=== PATIENT | female | born 1990 | race Caucasian/White ===

== ENCOUNTER 2017-12-25 10:25 | Emergency (ER) | payer BC ==
[~2017-12-25] VITALS: Ht 160 cm; Wt 63.6 kg
[~2017-12-25 10:25] MED LIST: ALLEGRA 180MG180 MG PO; ALLEGRA30 MG PO; BCP TD; CELEXA 20MG20 MG/TAB PO; CETIRIZINE; CYMBALTA 60MG60 MG PO; ELAVIL50 MG PO; FIORICET 325 MG1 TA1 PO; FLEXERIL 1010 MG/TAB PO; FLONASE0.05 MG/AC NS; IMATREX IM; MACROBID100 MG PO; NO HOME MEDICATIONS; PRENATAL VITAMI1 TA5 PO; RELPAX 40MG TAB40 MG PO; SEPTRA DS 8001 TAB PO; TOPAMAX 25MG25 M1 PO; TOPAMAX50 MG PO; ZOFRAN 4MG T4 MG/TAB PO; ZOFRAN ODT4 MG PO; ZOMIG2.5 MG PO
[2017-12-25 10:32] VITALS: TEMP 97.7
[2017-12-25] MEDS ORDERED: PRILOSEC 20MG20 MG PO (10:36)
[2017-12-25 11:31] LABS: BASO % 0.2 % (0.0-2.0); EOS % 0.6 % (0-4.0); GRAN # 3.4 (1.4-6.5); GRAN % 69.9 % (42.2-75.2); HEMATOCRIT 39.4 % (37.0-47.0); HEMOGLOBIN 13.3 g/dl (12.5-16.0); MEAN CELL VOLUME 86 fl (80.0-100.0); MEAN CORPUSCULAR HEMOGLOBIN 29 pg (27.0-31.0); MEAN CORPUSCULAR HGB CONC 34 g/dl (33.0-37.0); MEAN PLATELET VOLUME 9.5 fl (7.4-10.4); MONO # 0.4 (0.1-0.6); MONO % 8.1 % (1.7-9.3); PLATELET COUNT 227 K/mm3 (130-400); RED BLOOD COUNT 4.59 M/mm3 (4.10-5.30); REDCELL DISTRIBUTION WIDTH-CV 12.9 % (11.5-14.5)
[2017-12-25 12:05] LABS: ALBUMIN 4.3 gm/dL (3.5-5.0); BILIRUBIN,TOTAL 0.7 mg/dL (0.0-1.0); CALCIUM 9.5 mg/dL (8.4-10.2); CREATININE, serum 0.72 mg/dL (0.52-1.25); POTASSIUM 3.7 mmol/L (3.4-5.0); TOTAL PROTEIN 7.5 gm/dL (6.4-8.2)
[2017-12-25] MEDS ORDERED: ZOFRAN ODT4 MG PO (12:42)
[2017-12-25 12:55] VITALS: BP 107/62; PULSE 74
== END 2017-12-25 12:56 | disposition home or self-care (01) ==
LOC: COL.ER 10:25
PROVIDERS: Physician Assistant
DX: E86.9 Volume depletion, unspecified (principal); J06.9 Acute upper respiratory infection, unspecified; R11.2 Nausea with vomiting, unspecified; R19.7 Diarrhea, unspecified; K21.9 Gastro-esophageal reflux disease without esophagitis; Z98.890 Other specified postprocedural states
CPT/HCPCS: J2405; J7030

== ENCOUNTER 2018-02-22 15:25 | Outpatient (CLI) | payer BC ==
[~2018-02-22] VITALS: Ht 160 cm; Wt 63.6 kg
[~2018-02-22 15:25] MED LIST changes: +PRILOSEC 20MG20 MG PO
[2018-02-22] MEDS ORDERED: DEXILANT30 MG PO (16:15)
[2018-02-22 16:17] VITALS: BP 114/70; PULSE 81; TEMP 97.6
[2018-02-22] MEDS ORDERED: IMITREX100 MG PO (16:24)
[2018-02-22 16:58] LABS: HEMOGLOBIN 12.7 g/dl (12.5-16.0); MEAN CELL VOLUME 85 fl (80.0-100.0); MEAN CORPUSCULAR HEMOGLOBIN 29 pg (27.0-31.0); MEAN CORPUSCULAR HGB CONC 34 g/dl (33.0-37.0); MEAN PLATELET VOLUME 10.4 fl (7.4-10.4); PLATELET COUNT 109 K/mm3 (130-400); RED BLOOD COUNT 4.34 M/mm3 (4.10-5.30); REDCELL DISTRIBUTION WIDTH-CV 12.7 % (11.5-14.5)
== END 2018-02-22 17:31 | disposition home or self-care (01) ==
LOC: EUO 15:25
PROVIDERS: Family Medicine
DX: D69.6 Thrombocytopenia, unspecified (principal); R11.2 Nausea with vomiting, unspecified
CPT/HCPCS: J2405; J7030

== ENCOUNTER 2018-02-23 17:37 | Inpatient (IN) | payer BC ==
[~2018-02-23] VITALS: Ht 160 cm; Wt 64.7 kg
[2018-02-23 18:09] VITALS: BP 116/56; PULSE 81; TEMP 99.3
[2018-02-23 19:00] LABS: BASO % 0.3 % (0.0-2.0); EOS # 0.1 (0.0-0.7); EOS % 1.6 % (0-4.0); GRAN # 4.2 (1.4-6.5); GRAN % 66.4 % (42.2-75.2); HEMATOCRIT 39.9 % (37.0-47.0); HEMOGLOBIN 13.5 g/dl (12.5-16.0); LYMPH # 1.3 (1.2-3.4); LYMPH % 21.3 % (20.0-51.0); MEAN CELL VOLUME 86 fl (80.0-100.0); MEAN CORPUSCULAR HEMOGLOBIN 29 pg (27.0-31.0); MEAN CORPUSCULAR HGB CONC 34 g/dl (33.0-37.0); MEAN PLATELET VOLUME 10.1 fl (7.4-10.4); MONO # 0.6 (0.1-0.6); MONO % 10.2 % (1.7-9.3); PLATELET COUNT 76 K/mm3 (130-400); RED BLOOD COUNT 4.65 M/mm3 (4.10-5.30); REDCELL DISTRIBUTION WIDTH-CV 12.7 % (11.5-14.5)
[2018-02-23 19:23] LABS: CALCIUM 9.3 mg/dL (8.4-10.2); CREATININE, serum 0.71 mg/dL (0.52-1.25); MAGNESIUM 1.7 mg/dL (1.6-2.3); PHOSPHOROUS 3.5 mg/dL (2.5-4.5); POTASSIUM 3.9 mmol/L (3.4-5.0)
[2018-02-23 19:24] VITALS: BP 119/80; PULSE 90; TEMP 98.4
[2018-02-23 19:37] LABS: INR 1.2 (0.8-3.0); PROTHROMBIN TIME 13.9 SECONDS (9.7-12.8)
[2018-02-23 19:40] LABS: PARTIAL THROMBOPLASTIN TIME 29.9 SECONDS (26.0-37.0)
[2018-02-23 19:52] LABS: ALBUMIN 4.2 gm/dL (3.5-5.0); TOTAL PROTEIN 7.8 gm/dL (6.4-8.2)
[2018-02-23 20:06] LABS: BILIRUBIN UNCONJUGATED 0.2 mg/dL (0.0-1.1); BILIRUBIN,DIRECT 0.3 mg/dL (0.0-0.4); BILIRUBIN,TOTAL 0.4 mg/dL (0.0-1.0)
[2018-02-24] VITALS (13 sets, daily range): BP systolic 89–116; BP diastolic 43–74; PULSE 67–106; TEMP 97.2–98.8
[2018-02-24 01:42] LABS: COLLECTION METHOD CLEAN CATCH
[2018-02-24 01:48] LABS: MUCOUS Present /lpf; PH 6 (5-8); SQUAMOUS EPITHELIAL 0-2 /hpf; URINE APPEARANCE Clear; URINE BACTERIA None Seen /hpf; URINE BILIRUBIN Negative (NEGATIVE); URINE BLOOD Negative (NEGATIVE); URINE COLOR Yellow; URINE GLUCOSE Negative (NEGATIVE); URINE KETONE 2+ (NEGATIVE); URINE LEUKOCYTE ESTERASE Negative (NEGATIVE); URINE NITRATE Negative (NEGATIVE); URINE PROTEIN(semi-quant) Negative (NEGATIVE); URINE RBC 0-2 /hpf
[2018-02-24 12:23] LABS: BASO % 0.5 % (0.0-2.0); EOS # 0.1 (0.0-0.7); EOS % 0.9 % (0-4.0); GRAN # 3.9 (1.4-6.5); GRAN % 70.6 % (42.2-75.2); HEMATOCRIT 37.2 % (37.0-47.0); HEMOGLOBIN 12.7 g/dl (12.5-16.0); LYMPH % 18.4 % (20.0-51.0); MEAN CELL VOLUME 85 fl (80.0-100.0); MEAN CORPUSCULAR HEMOGLOBIN 29 pg (27.0-31.0); MEAN CORPUSCULAR HGB CONC 34 g/dl (33.0-37.0); MEAN PLATELET VOLUME 11.1 fl (7.4-10.4); MONO # 0.5 (0.1-0.6); MONO % 9.1 % (1.7-9.3); PLATELET COUNT 155 K/mm3 (130-400); RED BLOOD COUNT 4.38 M/mm3 (4.10-5.30); REDCELL DISTRIBUTION WIDTH-CV 12.4 % (11.5-14.5)
[2018-02-24 12:24] LABS: INR 1.3 (0.8-3.0); PROTHROMBIN TIME 14.7 SECONDS (9.7-12.8)
[2018-02-24 12:27] LABS: CALCIUM 8.8 mg/dL (8.4-10.2); CREATININE, serum 0.72 mg/dL (0.52-1.25); POTASSIUM 3.8 mmol/L (3.4-5.0)
[2018-02-24 16:14] LABS: FOLATE (FOLIC ACID) 11.7 ng/mL (7.0-31.4)
[2018-02-25] VITALS (7 sets, daily range): BP systolic 92–129; BP diastolic 43–77; PULSE 82–92; TEMP 97.4–98.6
[2018-02-25 07:01] LABS: CALCIUM 8.4 mg/dL (8.4-10.2); CREATININE, serum 0.7 mg/dL (0.52-1.25); POTASSIUM 4.1 mmol/L (3.4-5.0)
[2018-02-25 07:30] LABS: BASO % 0.4 % (0.0-2.0); EOS # 0.2 (0.0-0.7); EOS % 3.8 % (0-4.0); GRAN % 62.7 % (42.2-75.2); HEMOGLOBIN 12.3 g/dl (12.5-16.0); LYMPH # 1.1 (1.2-3.4); LYMPH % 22.3 % (20.0-51.0); MEAN CELL VOLUME 85 fl (80.0-100.0); MEAN CORPUSCULAR HEMOGLOBIN 29 pg (27.0-31.0); MEAN CORPUSCULAR HGB CONC 34 g/dl (33.0-37.0); MONO # 0.5 (0.1-0.6); MONO % 10.4 % (1.7-9.3); RED BLOOD COUNT 4.23 M/mm3 (4.10-5.30); REDCELL DISTRIBUTION WIDTH-CV 12.4 % (11.5-14.5)
[2018-02-25 07:39] LABS: HEMATOCRIT 35.8 % (37.0-47.0)
[2018-02-25 07:42] LABS: PLATELET COUNT 173 K/mm3 (130-400)
[2018-02-26 03:26] VITALS: BP 99/60; PULSE 87
[2018-02-26 07:56] LABS: BASO % 0.4 % (0.0-2.0); EOS # 0.1 (0.0-0.7); EOS % 2.8 % (0-4.0); GRAN # 2.8 (1.4-6.5); GRAN % 60.8 % (42.2-75.2); HEMATOCRIT 38.8 % (37.0-47.0); HEMOGLOBIN 13.5 g/dl (12.5-16.0); LYMPH # 1.1 (1.2-3.4); MEAN CELL VOLUME 84 fl (80.0-100.0); MEAN CORPUSCULAR HEMOGLOBIN 29 pg (27.0-31.0); MEAN CORPUSCULAR HGB CONC 35 g/dl (33.0-37.0); MEAN PLATELET VOLUME 9.7 fl (7.4-10.4); MONO # 0.6 (0.1-0.6); MONO % 11.8 % (1.7-9.3); RED BLOOD COUNT 4.62 M/mm3 (4.10-5.30); REDCELL DISTRIBUTION WIDTH-CV 12.4 % (11.5-14.5)
[2018-02-26 08:06] VITALS: BP 109/72; PULSE 86; TEMP 98
[2018-02-26 08:07] LABS: PLATELET COUNT 189 K/mm3 (130-400)
[2018-02-26 08:11] LABS: CALCIUM 9.2 mg/dL (8.4-10.2); CREATININE, serum 0.69 mg/dL (0.52-1.25); MAGNESIUM 1.6 mg/dL (1.6-2.3); POTASSIUM 3.3 mmol/L (3.4-5.0)
[2018-02-26 12:07] VITALS: BP 116/69; PULSE 85; TEMP 98.4
[2018-02-26 15:35] VITALS: BP 99/65; PULSE 93; TEMP 98.5
[2018-02-26 20:08] VITALS: BP 110/75; PULSE 95; TEMP 98.1
[2018-02-27 00:34] VITALS: BP 89/50; PULSE 70; TEMP 98.3
[2018-02-27 03:34] VITALS: BP 86/50; PULSE 77; TEMP 97.8
[2018-02-27 07:26] LABS: BASO % 0.6 % (0.0-2.0); EOS # 0.2 (0.0-0.7); EOS % 3.7 % (0-4.0); GRAN # 2.3 (1.4-6.5); GRAN % 49.1 % (42.2-75.2); HEMOGLOBIN 13.2 g/dl (12.5-16.0); LYMPH # 1.6 (1.2-3.4); LYMPH % 33.9 % (20.0-51.0); MEAN CELL VOLUME 82 fl (80.0-100.0); MEAN CORPUSCULAR HEMOGLOBIN 30 pg (27.0-31.0); MEAN CORPUSCULAR HGB CONC 36 g/dl (33.0-37.0); MONO # 0.6 (0.1-0.6); MONO % 12.5 % (1.7-9.3); RED BLOOD COUNT 4.47 M/mm3 (4.10-5.30); REDCELL DISTRIBUTION WIDTH-CV 12.5 % (11.5-14.5)
[2018-02-27 07:38] LABS: HEMATOCRIT 36.6 % (37.0-47.0)
[2018-02-27 07:39] LABS: PLATELET COUNT 126 K/mm3 (130-400)
[2018-02-27 07:43] LABS: CALCIUM 9.2 mg/dL (8.4-10.2); CREATININE, serum 0.73 mg/dL (0.52-1.25); POTASSIUM 3.5 mmol/L (3.4-5.0)
[2018-02-27 07:53] VITALS: BP 93/54; PULSE 88; TEMP 98.6
[2018-02-27 12:18] VITALS: BP 139/68; PULSE 71; TEMP 97.3
[2018-02-27] MEDS ORDERED: PRILOSEC 20MG20 MG PO (14:23)
== END 2018-02-27 15:49 | disposition home or self-care (01) | DRG 392 ==
LOC: MEDICAL 17:37
PROVIDERS: Internal Medicine; Internal Medicine Gastroenterology; Nurse Practitioner Family; Physician Assistant
PROC: 0DB78ZX Excision of Stomach, Pylorus, Via Natural or Artificial Opening Endoscopic, Diagnostic (ICD-10-PCS; principal; 2018-02-24 13:00)
DX: R11.2 Nausea with vomiting, unspecified (principal); E87.2 Acidosis; K21.9 Gastro-esophageal reflux disease without esophagitis; D69.6 Thrombocytopenia, unspecified; E16.2 Hypoglycemia, unspecified; E87.6 Hypokalemia; G43.909 Migraine, unspecified, not intractable, without status migrainosus
CPT/HCPCS: 99222-AI; 99232-AI; 99239; A9541; C9113; G0378; G0379; J1650; J1885; J2250; J2405; J3010; J7030; J7070; Q9967

== ENCOUNTER → 2018-02-23 | Outpatient (CLI) | payer BC ==
[~2018-02-23] MED LIST changes: +DEXILANT30 MG PO; +IMITREX100 MG PO
== END ==
LOC: COL.RAD 08:15
DX: R11.2 Nausea with vomiting, unspecified (principal)

== ENCOUNTER → 2018-03-02 | Outpatient (CLI) | payer BC | LOC: COL.RAD 08:14 | DX: R10.11 Right upper quadrant pain (principal) | CPT/HCPCS: A9537; J2805 ==

== ENCOUNTER 2018-10-22 21:24 | Emergency (ER) | payer BC ==
[~2018-10-22] VITALS: Ht 160 cm; Wt 59.1 kg
[2018-10-22 21:29] VITALS: TEMP 97.3
[2018-10-22 21:41] LABS: COLLECTION METHOD CATHETER
[2018-10-22] MEDS ORDERED: VITAMIN B-625 MG PO (21:51)
[2018-10-22] MEDS ORDERED: ZOFRAN ODT8 MG PO (21:51)
[2018-10-22 22:04] LABS: MUCOUS Present /lpf; PH 6 (5-8); SQUAMOUS EPITHELIAL 0-2 /hpf; URINE APPEARANCE Clear; URINE BACTERIA Rare /hpf; URINE BILIRUBIN Negative (NEGATIVE); URINE BLOOD Negative (NEGATIVE); URINE COLOR Yellow; URINE GLUCOSE Negative (NEGATIVE); URINE KETONE 2+ (NEGATIVE); URINE LEUKOCYTE ESTERASE Negative (NEGATIVE); URINE NITRATE Negative (NEGATIVE); URINE PROTEIN(semi-quant) Negative (NEGATIVE); URINE RBC 0-2 /hpf
[2018-10-22 22:07] LABS: BASO % 0.3 % (0.0-2.0); EOS % 0.3 % (0-4.0); GRAN # 6.6 (1.4-6.5); GRAN % 70.2 % (42.2-75.2); HEMATOCRIT 42.1 % (37.0-47.0); HEMOGLOBIN 14.6 g/dl (12.5-16.0); LYMPH % 21.3 % (20.0-51.0); MEAN CELL VOLUME 86 fl (80.0-100.0); MEAN CORPUSCULAR HEMOGLOBIN 30 pg (27.0-31.0); MEAN CORPUSCULAR HGB CONC 35 g/dl (33.0-37.0); MEAN PLATELET VOLUME 11.5 fl (7.4-10.4); MONO # 0.7 (0.1-0.6); MONO % 7.5 % (1.7-9.3); PLATELET COUNT 52 K/mm3 (130-400); REDCELL DISTRIBUTION WIDTH-CV 12.4 % (11.5-14.5)
[2018-10-22 22:09] LABS: ALBUMIN 4.5 gm/dL (3.5-5.0); BILIRUBIN,TOTAL 0.9 mg/dL (0.0-1.0); CALCIUM 9.8 mg/dL (8.4-10.2); CREATININE, serum 0.63 mg/dL (0.52-1.25); POTASSIUM 3.4 mmol/L (3.4-5.0); TOTAL PROTEIN 7.7 gm/dL (6.4-8.2)
[2018-10-22] MEDS ORDERED: CLEOCIN HCL300 MG PO (22:33)
[2018-10-22] MEDS ORDERED: CEPHALEXIN500 M1 PO (22:33)
[2018-10-23] MEDS ORDERED: DICLEGIS PO (01:33)
[2018-10-23 02:38] VITALS: BP 108/64; PULSE 104
== END 2018-10-23 02:45 | disposition home or self-care (01) ==
LOC: COL.ER 21:24
PROVIDERS: Emergency Medicine
DX: O21.9 Vomiting of pregnancy, unspecified (principal); O23.591 Infection of other part of genital tract in pregnancy, first trimester; B96.89 Other specified bacterial agents as the cause of diseases classified elsewhere; Z3A.08 8 weeks gestation of pregnancy; Z98.890 Other specified postprocedural states
CPT/HCPCS: A4216; J0696; J2405; J7030

== ENCOUNTER 2018-11-18 15:59 | Emergency (ER) | payer BC ==
[~2018-11-18] VITALS: Ht 160 cm; Wt 57.3 kg
[~2018-11-18 15:59] MED LIST changes: +CEPHALEXIN500 M1 PO; +CLEOCIN HCL300 MG PO; +DICLEGIS PO; +VITAMIN B-625 MG PO; +ZOFRAN ODT8 MG PO
[2018-11-18 18:49] LABS: COLLECTION METHOD CLEAN CATCH
[2018-11-18 18:54] LABS: BASO % 0.4 % (0.0-2.0); EOS % 0.1 % (0-4.0); GRAN # 6.1 (1.4-6.5); GRAN % 74.7 % (42.2-75.2); HEMATOCRIT 41.4 % (37.0-47.0); HEMOGLOBIN 14.5 g/dl (12.5-16.0); LYMPH # 1.5 (1.2-3.4); LYMPH % 17.7 % (20.0-51.0); MEAN CELL VOLUME 86 fl (80.0-100.0); MEAN CORPUSCULAR HEMOGLOBIN 30 pg (27.0-31.0); MEAN CORPUSCULAR HGB CONC 35 g/dl (33.0-37.0); MEAN PLATELET VOLUME 11.2 fl (7.4-10.4); MONO # 0.6 (0.1-0.6); MONO % 6.9 % (1.7-9.3); RED BLOOD COUNT 4.83 M/mm3 (4.10-5.30); REDCELL DISTRIBUTION WIDTH-CV 12.7 % (11.5-14.5)
[2018-11-18] MEDS ORDERED: PRENATAL MVI PO (18:56)
[2018-11-18] MEDS ORDERED: UNISOM25 MG PO (18:56)
[2018-11-18 19:00] LABS: ALBUMIN 4.5 gm/dL (3.5-5.0)
[2018-11-18 19:03] LABS: BILIRUBIN,TOTAL 0.8 mg/dL (0.0-1.0); CALCIUM 9.7 mg/dL (8.4-10.2); CREATININE, serum 0.6 mg/dL (0.52-1.25); POTASSIUM 3.5 mmol/L (3.4-5.0); TOTAL PROTEIN 7.8 gm/dL (6.4-8.2)
[2018-11-18 19:05] LABS: PLATELET COUNT 24 K/mm3 (130-400)
[2018-11-18 19:10] LABS: MUCOUS Present /lpf; PH 6 (5-8); URINE APPEARANCE Clear; URINE BACTERIA None Seen /hpf; URINE BILIRUBIN Negative (NEGATIVE); URINE BLOOD Negative (NEGATIVE); URINE COLOR Yellow; URINE GLUCOSE Negative (NEGATIVE); URINE KETONE 2+ (NEGATIVE); URINE LEUKOCYTE ESTERASE Negative (NEGATIVE); URINE NITRATE Negative (NEGATIVE); URINE PROTEIN(semi-quant) 1+ (NEGATIVE); URINE RBC 0-2 /hpf; URINE UROBILINOGEN Negative (NEGATIVE)
[2018-11-18 19:53] LABS: HEMOGLOBIN 12.7 g/dl (12.5-16.0); MEAN CELL VOLUME 86 fl (80.0-100.0); MEAN CORPUSCULAR HEMOGLOBIN 30 pg (27.0-31.0); MEAN CORPUSCULAR HGB CONC 35 g/dl (33.0-37.0); MEAN PLATELET VOLUME 10.5 fl (7.4-10.4); REDCELL DISTRIBUTION WIDTH-CV 12.8 % (11.5-14.5)
[2018-11-18 20:00] LABS: HEMATOCRIT 36.2 % (37.0-47.0); PLATELET COUNT 178 K/mm3 (130-400)
[2018-11-18 20:05] LABS: BAND 3 % (0-10); LYMPHOCYTE 13 % (20.0-51.0); NEUTROPHILS 78 % (42.0-75.2); PLATELET ESTIMATE NORMAL (NORMAL)
[2018-11-18 21:09] VITALS: BP 113/71; PULSE 86; TEMP 99.1
== END 2018-11-18 21:16 | disposition home or self-care (01) ==
LOC: COL.ER 15:59
PROVIDERS: Nurse Practitioner
DX: O21.9 Vomiting of pregnancy, unspecified (principal); O99.341 Other mental disorders complicating pregnancy, first trimester; F41.9 Anxiety disorder, unspecified; G43.909 Migraine, unspecified, not intractable, without status migrainosus; Z88.8 Allergy status to other drugs, medicaments and biological substances; Z3A.10 10 weeks gestation of pregnancy
CPT/HCPCS: J2405; J7030

== ENCOUNTER → 2019-04-07 | Outpatient (CLI) | payer BC ==
[~2019-04-07] MED LIST changes: +PRENATAL MVI PO; +UNISOM25 MG PO
== END ==
LOC: COL.RAD 14:25
DX: O12.03 Gestational edema, third trimester (principal); Z3A.30 30 weeks gestation of pregnancy

== ENCOUNTER 2019-04-13 04:28 | Outpatient (CLI) | payer BC ==
[2019-04-13] VITALS (9 sets, daily range): BP systolic 109–126; BP diastolic 62–85; PULSE 76–106; TEMP 98.2–98.4
[~2019-04-13] VITALS: Ht 162.6 cm; Wt 69.5 kg
[~2019-04-13 04:28] MED LIST changes: -FERRO-TIME325 MG PO; -TESSALON P100 MG/CAP PO; -TYLENOL W/COD1 UDTAB PO
--- NOTE | 2019-04-13 04:30 | NUR ---
0430- Patient to LDR-4 via wheelchair from ED with product technician. Patient into restroom to change into gown. 0440- Patient into bed. EFM and TOCO on and tracing. Patient has complaints of "excruciating belly button pain" since 1700 that has increasing gotten worse. Patient describes pain as sharp and constant. Patient denies contractions and states "this pain feels nothing like contraction pain at all." Patient admits to having a recent sinus infection and has has a persistent cough x3 weeks. Patient denies pain occuring after a cough. Patient denies anything penetrating her belly button. Patient took Tylenol 650mg at 2100 and has had no relief. Plan of care discussed with patient and patient's mother. 0445- SVE declined.
[2019-04-13] MEDS ORDERED: FERRO-TIME325 MG PO (04:43)
--- NOTE | 2019-04-13 05:30 | NUR ---
0500- See Physician Notification. 0505- Patient off monitor and into restroom to collect UA. 0515- EFM and TOCO off. NST reactive. Lab notified of new orders. 0530- photo tech at bedside for lab draw. Plan of care discussed with patient.
[2019-04-13 05:37] LABS: COLLECTION METHOD CLEAN CATCH
[2019-04-13 05:40] LABS: BASO % 0.1 % (0.0-2.0); EOS # 0.1 (0.0-0.7); GRAN # 6.1 (1.4-6.5); GRAN % 74.1 % (42.2-75.2); LYMPH # 1.3 (1.2-3.4); LYMPH % 16.4 % (20.0-51.0); MEAN CELL VOLUME 85 fl (80.0-100.0); MEAN CORPUSCULAR HGB CONC 33 g/dl (33.0-37.0); MEAN PLATELET VOLUME 9.3 fl (7.4-10.4); MONO # 0.6 (0.1-0.6); MONO % 7.5 % (1.7-9.3); PLATELET COUNT 166 K/mm3 (130-400); RED BLOOD COUNT 3.34 M/mm3 (4.10-5.30); REDCELL DISTRIBUTION WIDTH-CV 12.5 % (11.5-14.5)
[2019-04-13 05:44] LABS: HEMATOCRIT 28.5 % (37.0-47.0); HEMOGLOBIN 9.4 g/dl (12.5-16.0); MEAN CORPUSCULAR HEMOGLOBIN 28 pg (27.0-31.0)
[2019-04-13 05:45] LABS: MUCOUS Present /lpf; PH 7 (5-8); URINE APPEARANCE Hazy; URINE BACTERIA None Seen /hpf; URINE BILIRUBIN Negative (NEGATIVE); URINE BLOOD Negative (NEGATIVE); URINE COLOR Yellow; URINE GLUCOSE Negative (NEGATIVE); URINE KETONE Negative (NEGATIVE); URINE LEUKOCYTE ESTERASE Negative (NEGATIVE); URINE NITRATE Negative (NEGATIVE); URINE PROTEIN(semi-quant) Negative (NEGATIVE); URINE RBC 0-2 /hpf; URINE UROBILINOGEN Negative (NEGATIVE)
[2019-04-13 05:50] LABS: ALBUMIN 2.9 gm/dL (3.5-5.0); BILIRUBIN,TOTAL 0.3 mg/dL (0.0-1.0); CALCIUM 8.4 mg/dL (8.4-10.2); CREATININE, serum 0.55 (0.52-1.25); POTASSIUM 3.4 mmol/L (3.4-5.0); TOTAL PROTEIN 5.8 gm/dL (6.4-8.2)
--- NOTE | 2019-04-13 06:00 | NUR ---
0555- See Physician Notification. 0600- Discharge instructions explained in depth to patient. suspects round ligament pain. Patient to return to hospital if she experiences nausea, vomiting, or increased fever. Patient relieved to hear she is ok from OB standpoint but is upset about pain not being treated and would like to return to ED for treatment. ED word processor operator notified. 0605- Patient ambulatory to ED with this RN.
--- NOTE | 2019-04-13 09:10 | NUR ---
Patient onto unit via wheelchair from ER. Patient was on L&D unit from 0430 to 0605, then sent to ER for further evaluation for severe umbilicus pain. Ultrasound performed in ER showed placental abruption, orders from received to monitor patient. EFMs on, VS taken. Patient states Fentanyl did not help and she is still having severe pain. Patient reports good movement and occasional tightening. Denies feeling contraction pain, leaking of fluid, or vaginal bleeding. called for further orders. FOB and mother at bedside. Plan of care discussed. Call light within reach.
--- NOTE | 2019-04-13 09:50 | NUR ---
Sono at bedside. Taken off EFM for ordered imaging.
--- NOTE | 2019-04-13 10:53 | NUR ---
Imaging completed. EFM replaced. Patient reports her nausea is improved but the pain in her umbilical area remains the same. Patient reports occasional tightening "probably about 3-4 times since I've been on this unit". No vaginal bleeding noted. Reports normal movement.
--- NOTE | 2019-04-13 12:20 | NUR ---
at bedside Provider discussing plan of care with patient and family. Questions answered. IV dc'd per orders. Betamethasone given, see eMAR.
[2019-04-13] MEDS ORDERED: TESSALON P100 MG/CAP PO (12:39)
[2019-04-13] MEDS ORDERED: TYLENOL W/COD1 UDTAB PO (12:39)
[2019-04-13] MEDS ORDERED: FLEXERIL 1010 MG/TAB PO (12:39)
--- NOTE | 2019-04-13 13:00 | NUR ---
Discharge instructions and return precautions reviewed with patient and family. Questions answered. Verbalized understanding. Patient off of unit via wheelchair.
== END 2019-04-13 13:00 | disposition home or self-care (01) ==
LOC: LDRO 04:28
PROVIDERS: Obstetrics & Gynecology
DX: O99.89 Other specified diseases and conditions complicating pregnancy, childbirth and the puerperium (principal); R10.33 Periumbilical pain; Z3A.31 31 weeks gestation of pregnancy
CPT/HCPCS: J0702; J7120

== ENCOUNTER 2019-04-13 06:08 | Emergency (ER) | payer BC ==
[~2019-04-13] VITALS: Ht 160 cm; Wt 68.8 kg
[~2019-04-13 06:08] MED LIST changes: +FERRO-TIME325 MG PO
[2019-04-13 06:11] VITALS: BP 120/83; TEMP 97.1
[2019-04-13] MEDS ORDERED: TYLENOL W/COD1 UDTAB PO (12:39)
[2019-04-13] MEDS ORDERED: TESSALON P100 MG/CAP PO (12:39)
[2019-04-13] MEDS ORDERED: FLEXERIL 1010 MG/TAB PO (12:39)
== END 2019-04-13 09:15 | disposition other institution (70) ==
LOC: COL.ER 06:08
DX: R10.33 Periumbilical pain (principal); Z90.89 Acquired absence of other organs
CPT/HCPCS: J3010; J7030

== ENCOUNTER → 2019-04-13 | Emergency (ER) | payer BC ==
[~2019-04-13] MED LIST changes: +FERRO-TIME325 MG PO; +TESSALON P100 MG/CAP PO; +TYLENOL W/COD1 UDTAB PO
== END ==
LOC: COL.ER 04:17
DX: Z72.9 Problem related to lifestyle, unspecified (principal)

== ENCOUNTER → 2019-05-12 | Outpatient (CLI) | payer BC ==
[~2019-05-12] MED LIST changes: +TESSALON P100 MG/CAP PO; +TYLENOL W/COD1 UDTAB PO
== END ==
LOC: COL.RAD 13:28
DX: O99.89 Other specified diseases and conditions complicating pregnancy, childbirth and the puerperium (principal); R07.9 Chest pain, unspecified; R06.02 Shortness of breath; Z3A.35 35 weeks gestation of pregnancy
CPT/HCPCS: Q9967

== ENCOUNTER 2019-05-29 04:53 | Inpatient (IN) | payer BC ==
[2019-05-29] VITALS (20 sets, daily range): BP systolic 103–127; BP diastolic 64–93; PULSE 73–106; TEMP 97.6–98.6
--- NOTE | 2019-05-29 05:20 | NUR ---
ambulatory to unit for assessment, accompanied by family. Pt reports "my water broke @0300." Oriented to room, monitor, plan of care.
--- NOTE | 2019-05-29 06:20 | NUR ---
Report received from Caridad GUILLAUME. Roles here and will plan to do repeat c/section this AM. Will notify physician. Consents signed and pt prepped for surgery. Preop checklist complete. FHR reactive. Pt denies any strong contractions.
[2019-05-29 06:29] LABS: BASO % 0.3 % (0.0-2.0); EOS # 0.1 (0.0-0.7); EOS % 0.9 % (0-4.0); GRAN # 6.3 (1.4-6.5); GRAN % 71.7 % (42.2-75.2); LYMPH # 1.6 (1.2-3.4); LYMPH % 17.7 % (20.0-51.0); MEAN CELL VOLUME 82 fl (80.0-100.0); MEAN CORPUSCULAR HGB CONC 31 g/dl (33.0-37.0); MEAN PLATELET VOLUME 9.9 fl (7.4-10.4); MONO # 0.7 (0.1-0.6); MONO % 8.1 % (1.7-9.3); PLATELET COUNT 147 K/mm3 (130-400); RED BLOOD COUNT 3.87 M/mm3 (4.10-5.30); REDCELL DISTRIBUTION WIDTH-CV 14.8 % (11.5-14.5)
[2019-05-29 06:31] LABS: HEMATOCRIT 31.6 % (37.0-47.0); HEMOGLOBIN 9.9 g/dl (12.5-16.0); MEAN CORPUSCULAR HEMOGLOBIN 26 pg (27.0-31.0)
--- NOTE | 2019-05-29 08:20 | NUR ---
Pt transferred to room 213 via bed. Family at bedside. Fundus firm, bleeding WNL. Pericare done and pads changed. Pt denies any pain, sitting up drinking water. SCD's in place bilaterally.
--- NOTE | 2019-05-29 13:45 | NUR ---
pt up to bathroom with assist. Barry catheter removed. Pericare done and new pads in place. Pt back to bed, tolerated very well.
[2019-05-30 00:05] VITALS: BP 102/60; PULSE 77; TEMP 97.8
[2019-05-30 05:05] VITALS: BP 116/78; PULSE 85; TEMP 97.6
[2019-05-30 07:13] LABS: HEMATOCRIT 26.6 % (37.0-47.0); HEMOGLOBIN 8.3 g/dl (12.5-16.0)
[2019-05-30 07:15] VITALS: BP 106/54; PULSE 81; TEMP 97.5
--- NOTE | 2019-05-30 10:50 | NUR ---
Initial visit; Parents thanked Improvement Lead for offering congratulations and God's blessings for the of their daughter. Improvement Lead thanked family for choosing [facility].
[2019-05-30 16:00] VITALS: BP 115/65; PULSE 82; TEMP 98.5
[2019-05-30 19:37] VITALS: BP 121/70; PULSE 86; TEMP 97.5
[2019-05-31 09:20] VITALS: BP 113/67; PULSE 83; TEMP 98
[2019-05-31] MEDS ORDERED: PERCOCET 325 MG1 TA2 PO (09:29)
== END 2019-05-31 12:50 | disposition home or self-care (01) | DRG 788 ==
LOC: LDRO 04:53 → LDR 05:56 → OB 08:30
PROVIDERS: Obstetrics & Gynecology; ADMIT Student in an Organized Health Care Education/Training Program
PROC: 10D00Z1 Extraction of Products of Conception, Low, Open Approach (ICD-10-PCS; principal; 2019-05-30)
DX: O42.92 Full-term premature rupture of membranes, unspecified as to length of time between rupture and onset of labor (principal); O34.211 Maternal care for low transverse scar from previous cesarean delivery; O75.82 Onset (spontaneous) of labor after 37 completed weeks of gestation but before 39 completed weeks gestation, with delivery by (planned) cesarean section; Z3A.37 37 weeks gestation of pregnancy; Z37.0 Single live birth; Z88.8 Allergy status to other drugs, medicaments and biological substances
CPT/HCPCS: J0690; J1885; J2370; J2405; J2590; J3010; J7120

== ENCOUNTER → 2019-12-27 | Outpatient (CLI) | payer OTHER ==
[~2019-12-27] MED LIST changes: +PERCOCET 325 MG1 TA2 PO
== END ==
LOC: COL.RAD 07:26
DX: R10.12 Left upper quadrant pain (principal)

== ENCOUNTER → 2020-03-20 | Outpatient (CLI) | payer OTHER | LOC: COL.RAD 07:43 | DX: N20.0 Calculus of kidney (principal); N83.201 Unspecified ovarian cyst, right side; Z97.5 Presence of (intrauterine) contraceptive device | CPT/HCPCS: Q9967 ==